=== PATIENT | male | born 1970 | race Two or more races ===

== ENCOUNTER 2023-10-27 09:33 | Emergency (ER) | payer SELFPAY ==
[~2023-10-27] VITALS: Ht 180.3 cm; Wt 85.6 kg
[2023-10-27 10:47] VITALS: BP 136/78; PULSE 69; RESP 16; TEMP 97.5; O2SAT 96
[2023-10-27] MEDS ORDERED: KETOROLAC TROMETH 60MG/2ML VIAL IM ONE (11:15)
[2023-10-27] MEDS ORDERED: KETOROLAC TROMETH 60MG/2ML VIAL ONE (11:21)
[2023-10-27] MEDS ORDERED: METH-1182 PO (11:50)
[2023-10-27] MEDS ORDERED: IBUP-1456 PO (11:50)
== END 2023-10-27 12:03 | disposition home or self-care (01) ==
LOC: ER 09:33
DX: S39.012A Strain of muscle, fascia and tendon of lower back, initial encounter (principal); X50.1XXA Overexertion from prolonged static or awkward postures, initial encounter; Y93.89 Activity, other specified; Y92.89 Other specified places as the place of occurrence of the external cause; Y99.8 Other external cause status
CPT/HCPCS: 96372; 99283; J1885